=== PATIENT | female | born 1955 | race Caucasian/White ===

== ENCOUNTER → 2017-02-18 | Outpatient (CLI) | payer OTHER | END | disposition home or self-care (01) | LOC: GMA 15:36 | PROVIDERS: ATTEND Nurse Practitioner Family | DX: N39.0 Urinary tract infection, site not specified (principal) ==

== ENCOUNTER → 2017-04-13 | Outpatient (CLI) | payer OTHER | END | disposition home or self-care (01) | LOC: GMAM 12:09 | PROVIDERS: ATTEND Family Medicine | DX: E03.9 Hypothyroidism, unspecified (principal); E53.8 Deficiency of other specified B group vitamins ==

== ENCOUNTER → 2017-06-13 | Outpatient (CLI) | payer OTHER | END | disposition home or self-care (01) | LOC: GMA 11:09 | PROVIDERS: ATTEND Nurse Practitioner Acute Care | DX: E03.9 Hypothyroidism, unspecified (principal) ==

== ENCOUNTER → 2017-07-31 | Outpatient (CLI) | payer OTHER | END | disposition home or self-care (01) | LOC: GMA 15:02 | PROVIDERS: ATTEND Nurse Practitioner Acute Care | DX: N39.0 Urinary tract infection, site not specified (principal) ==

== ENCOUNTER → 2017-09-05 | Outpatient (CLI) | payer OTHER | END | disposition home or self-care (01) | LOC: GMA 12:18 | PROVIDERS: ATTEND Nurse Practitioner Acute Care | DX: E03.9 Hypothyroidism, unspecified (principal) ==

== ENCOUNTER → 2017-10-04 | Outpatient (CLI) | payer OTHER ==
--- NOTE | 2017-10-04 14:49 | MAM ---
EXAM DESCRIPTION: 3D Screening BILATERAL : Digital Mammography. CLINICAL HISTORY: 62 years Female SCREENING . No complaints. No family history breast cancer. Hysterectomy 1981. Has taken HRT more than 5 years ago. Bilateral breast augmentation 1984. COMPARISON: 2-D digital screening bilateral study 04/24/2014. No prior reports available. TECHNIQUE: Bilateral CC and MLO projection full-field images, with Adalgisa Implant Displacement 3-D tomosynthesis digital mammographic technique. Also bilateral synthesized CC/ MLO full-field images , with Adalgisa Implant Displacement, CAD not utilized. 2-D digital full-field images, MLO and CC projections bilaterally, non-displaced, with CAD. FINDINGS: The breast parenchymal density pattern is: Heterogeneously dense breast tissue, which may obscure small masses. No skin thickening or nipple retraction bilateral vascular calcifications. Bilateral silicon retroglandular implants with irregular capsules but no definite leakage. Bilateral solitary microcalcifications. No focal, stellate mass or density, focal asymmetry , and no suspicious microcalcifications bilaterally. Stable mammograms compared to prior study, taking into account differences in mammographic technique IMPRESSION: BI-RADS CATEGORY: 2 - BENIGN FINDINGS. FOLLOW UP: Routine digital bilateral screening, one year interval from September 2017. Written communication explaining the IMPRESSION and follow-up, will be mailed to the patient and referring health care provider. According to the [employer], yearly mammograms are recommended starting at age 40 and continuing as long as a woman is in good health. Any breast change noted on a breast self-exam should be reported promptly to the patient's healthcare provider. Breast MRI is recommended for women with an approximately 20-25% or greater lifetime risk of breast cancer, including women with a strong family history of breast or ovarian cancer and women who have been treated for Hodgkin's disease. A negative mammographic report should not delay tissue diagnosis in patients with significant clinical history or physical findings. Extremely dense breast tissue limits the sensitivity of digital mammography. Electronically signed by: Lee Coburn MD 10/04/2017 2:48 PM [employer] CLIENT MANAGER
== END | disposition home or self-care (01) ==
LOC: MAMMO 10:58
PROVIDERS: ATTEND Family Medicine
DX: Z12.31 Encounter for screening mammogram for malignant neoplasm of breast (principal)
CPT/HCPCS: 77063; G0202

== ENCOUNTER → 2017-10-19 | Outpatient (CLI) | payer OTHER | END | disposition home or self-care (01) | LOC: GMA 11:03 | PROVIDERS: ATTEND Nurse Practitioner Acute Care | DX: E53.8 Deficiency of other specified B group vitamins (principal); E03.9 Hypothyroidism, unspecified; E55.9 Vitamin D deficiency, unspecified ==

== ENCOUNTER → 2017-11-21 | Outpatient (CLI) | payer OTHER | LOC: GMALS 11:40 | PROVIDERS: ATTEND Nurse Practitioner Acute Care | DX: E03.9 Hypothyroidism, unspecified (principal) ==

== ENCOUNTER → 2018-01-02 | Outpatient (CLI) | payer OTHER | LOC: GMA 12:13 | PROVIDERS: ATTEND Nurse Practitioner Acute Care | DX: E03.9 Hypothyroidism, unspecified (principal) ==

== ENCOUNTER 2018-01-13 20:50 | Emergency (ER) | payer OTHER ==
[2018-01-13] MEDS ORDERED: CHLORHEXIDINE GLUCONATE 4 % 15 ML UD TOP ONE (20:57)
[2018-01-13 21:12] VITALS: BP 135/93; O2SAT 94
[2018-01-13] MEDS ORDERED: TETANUS-DIPHTHERIA TOXOIDS (TD 1 EA SYG IM ONE (21:12)
[2018-01-13] MEDS ORDERED: SULFA/TRIMETH 800/160 (DS) TAB 1 EA TAB PO ONE (21:12)
--- NOTE | 2018-01-13 21:16 | ED.PDOC ---
History of Present Illness - General Chief Complaint: Laceration Stated Complaint: Fell off ladder hitting back head Time Seen by Provider: 01/13/18 21:06 Source: patient Exam Limitations: no limitations - History of Present Illness Initial Comments: The patient is a 62-year-old female presenting to the emergency room secondary to having tripped and fallen backwards off of the latter up about a foot and a half in the air. The patient did not have any loss of consciousness. She had the posterior right occipital area and sustained a 1-1/ 4 inch laceration that extends down to the cranium. No evidence of any bony crepitus. No evidence of CSF leakage. No evidence of any midface fracture or neck pain. She is not taking any blood thinners. No loss of consciousness. Timing/Duration: momentarily Severity: moderate Improving Factors: nothing Worsening Factors: nothing Associated Symptoms: denies symptoms Home Medications: Ambulatory Orders Sulfa/Trimeth 800/160 (Ds) Tab [Bactrim DS Tab] 1 ea PO BID #7 tab 01/13/18 Review of Systems - Review of Systems Constitutional: States: no symptoms reported EENTM: States: no symptoms reported Respiratory: States: no symptoms reported Cardiology: States: no symptoms reported Gastrointestinal/Abdominal: States: no symptoms reported Genitourinary: States: no symptoms reported Musculoskeletal: States: no symptoms reported Skin: States: see HPI Neurological: States: headache - mild Endocrine: States: no symptoms reported All other Systems: No Change from Baseline Past Medical History (General) - Patient Medical History Hx Seizures: No Hx Stroke: No Hx Dementia: No Hx Asthma: No Hx of COPD: No Hx Cardiac Disorders: No Hx Congestive Heart Failure: No Hx Pacemaker: No Hx Hypertension: No Hx Thyroid Disease: Yes Hx Diabetes: No Hx Gastroesophageal Reflux: No Hx Renal Disease: No Hx Cancer: No Hx of HIV: No Hx Hepatitis C: No Hx MRSA: No Surgical History: noncontributory - Vaccination History Hx Tetanus, Diphtheria Vaccination: No Hx Influenza Vaccination: No Hx Pneumococcal Vaccination: Yes Immunizations Up to Date: No Immunizations Comment: Needs Tetanus - Social History Hx Tobacco Use: Yes - Quit over 20 yrs ago Hx Chewing Tobacco Use: No Hx Alcohol Use: Yes Hx Substance Use: No Hx Substance Use Treatment: No Hx Depression: No Feels Threatened In Home Enviroment: No Feels Threatened In a Relationship: No Hx Physical Abuse: No Hx Emotional Abuse: No Hx Suspected Abuse: No - Activities of Daily Living Hospice Agency (if applicable):: None - Female History Patient is a Female of Child Bearing Age (10 -59 yrs old): No Patient : No Physical Exam - Physical Exam General Appearance: Alert, Comfortable, No apparent distress Eye Exam: bilateral normal Ears, Nose, Throat: hearing grossly normal, normal ENT inspection Neck: full range of motion, supple Respiratory: no respiratory distress, no accessory muscle use Cardiovascular/Chest: normal peripheral pulses, no edema Peripheral Pulses: radial,right: 2+, radial,left: 2+ Rectal Exam: deferred Back Exam: normal inspection Extremity: non-tender, normal inspection, normal capillary refill Neurologic: roller hand II-XII nml as tested, alert, normal mood/affect, oriented x 3 Skin Exam: normal color Comments: Vital Signs - 24 hr 01/13/18 20:55 Temperature 97.5 F L Pulse Rate [ 104 H Right Brachial] Respiratory 20 Rate Blood Pressure 135/93 [Right Arm] O2 Sat by Pulse 94 L Oximetry Progress - Progress Progress: 01/13/18 21:14 the patient is a 62-year-old female that fell backwards off of the ladder a little more than a foot in the air. She sustained a posterior occipital laceration to the scalp. This has been cleaned and 3 vicki have been placed for reapproximation of tissue and hemostasis. The patient was given a dose of Bactrim and a tetanus shot. She'll be placed on Bactrim twice daily for the next 3 days. Vicki need to come out in 7-10 days. Monitor for any evidence of infection. She is to be brought back to the emergency room for any worsening of her mental status. ER warnings were given. Departure - Departure Clinical Impression: Accidental laceration Disposition: Discharge to Home or Self Care Condition: Fair Departure Forms: ED Discharge - Pt. Copy, Patient Portal Self Enrollment Instructions: DI for Laceration Repair, DI for Laceration Repair -- [place] Diet: regular diet Activity: increase activity as tolerated Referrals: Darrell Giles MD [Primary Care Provider] - 1-2 Weeks Prescriptions: Sulfa/Trimeth 800/160 (Ds) Tab [Bactrim DS Tab] 1 ea PO BID #7 tab Home Medications: Ambulatory Orders Sulfa/Trimeth 800/160 (Ds) Tab [Bactrim DS Tab] 1 ea PO BID #7 tab 01/13/18 Additional Instructions: the patient is a 62-year-old female that fell backwards off of the ladder a little more than a foot in the air. She sustained a posterior occipital laceration to the scalp. This has been cleaned and 3 vicki have been placed for reapproximation of tissue and hemostasis. The patient was given a dose of Bactrim and a tetanus shot. She'll be placed on Bactrim twice daily for the next 3 days. [place] need to come out in 7-10 days. Monitor for any evidence of infection. She is to be brought back to the emergency room for any worsening of her mental status. ER warnings were given.
[2018-01-13 21:18] VITALS: TEMP 98.3
[2018-01-13] MEDS ORDERED: TETANUS,DIPHTHERIA,PERTUSSIS 1 EA SYG IM ONE (21:20)
== END 2018-01-13 21:39 | disposition home or self-care (01) ==
LOC: ER 20:50
DX: S01.01XA Laceration without foreign body of scalp, initial encounter (principal); E07.9 Disorder of thyroid, unspecified; Z23 Encounter for immunization; Z87.891 Personal history of nicotine dependence; W11.XXXA Fall on and from ladder, initial encounter; Y92.9 Unspecified place or not applicable

== ENCOUNTER → 2018-02-20 | Outpatient (CLI) | payer OTHER | LOC: GMATM 16:34 | PROVIDERS: ATTEND Nurse Practitioner Family | DX: N39.0 Urinary tract infection, site not specified (principal) ==

== ENCOUNTER → 2019-01-22 | Outpatient (CLI) | payer OTHER | LOC: GMALS 11:05 | PROVIDERS: ATTEND Nurse Practitioner Acute Care | DX: E03.9 Hypothyroidism, unspecified (principal) ==

== ENCOUNTER → 2019-04-22 | Outpatient (CLI) | payer OTHER | LOC: GMA 10:35 | PROVIDERS: ATTEND Nurse Practitioner Acute Care | DX: E03.9 Hypothyroidism, unspecified (principal) ==

== ENCOUNTER → 2020-07-06 | Outpatient (CLI) | payer MEDICARE, OTHER | LOC: GMALS 14:18 | PROVIDERS: ATTEND Nurse Practitioner Acute Care | DX: R23.3 Spontaneous ecchymoses (principal) ==

== ENCOUNTER → 2020-07-08 | Outpatient (CLI) | payer MEDICARE, OTHER ==
--- NOTE | 2020-07-14 15:50 | MAM ---
EXAM DESCRIPTION: 3D Screening BILATERAL : Digital Mammography. CLINICAL HISTORY: 65 years Female SCREENING . No complaints and no family history breast cancer. Menarche age 13. Childbirth age 17. Menopause age 25. HRT less than 5 years ago. Bilateral breast augmentation.. Lifetime risk of developing breast cancer (Tyrer-Cuzick model)(%): 4.6. COMPARISON: Bilateral screening digital breast tomosynthesis with Adalgisa implant displacement September 2017. TECHNIQUE: Bilateral CC and MLO projection full-field images, with Adalgisa Implant Displacement digital tomosynthesis mammographic technique. Bilateral 2-D digital full-field images, MLO and CC projections, non-displaced. Bilateral digital 2-D full-field MLO images. Implant displaced. CAD available for 2-D images. FINDINGS: The breast parenchymal density pattern is: Scattered areas of fibroglandular density. No skin thickening or nipple retraction. Bilateral retroglandular implants demonstrate partially calcified capsules, and reduced in size. Bilateral small leaks are suspected with outpouching of implant material. Vascular calcifications. No new focal, stellate mass or density, focal asymmetry , and no suspicious microcalcifications bilaterally. Stable mammograms compared to prior study. IMPRESSION: Benign exam. BIRAD CATEGORY: 2 BENIGN FINDINGS. RECOMMENDATIONS: FOLLOW UP: Routine digital bilateral mammographic screening, one year interval from July 2020. Written communication explaining the IMPRESSION and follow-up, will be mailed to the patient and referring health care provider. According to the [employer], yearly mammograms are recommended starting at age 40 and continuing as long as a woman is in good health. Any breast change noted on a breast self-exam should be reported promptly to the patient's healthcare provider. Breast MRI is recommended for women with an approximately 20-25% or greater lifetime risk of breast cancer, including women with a strong family history of breast or ovarian cancer and women who have been treated for Hodgkin's disease. A negative mammographic report should not delay tissue diagnosis in patients with significant clinical history or physical findings. Extremely dense breast tissue limits the sensitivity of digital mammography. Electronically signed by: Lee Coburn MD 07/14/2020 3:48 PM CDT
== END ==
LOC: MAMMO 13:34
PROVIDERS: ATTEND Nurse Practitioner Acute Care
DX: Z12.31 Encounter for screening mammogram for malignant neoplasm of breast (principal)

== ENCOUNTER → 2020-08-13 | Outpatient (CLI) | payer MEDICARE, OTHER | LOC: GMAM 10:39 | PROVIDERS: ATTEND Family Medicine | DX: E03.9 Hypothyroidism, unspecified (principal) ==

== ENCOUNTER → 2020-09-28 | Outpatient (CLI) | payer MEDICARE, OTHER | LOC: GMALS 16:40 | PROVIDERS: ATTEND Nurse Practitioner Acute Care | DX: E03.9 Hypothyroidism, unspecified (principal) ==

== ENCOUNTER → 2020-10-29 | Outpatient (CLI) | payer MEDICARE, OTHER | LOC: GMALS 16:39 | PROVIDERS: ATTEND Nurse Practitioner Acute Care | DX: E53.8 Deficiency of other specified B group vitamins (principal); E55.9 Vitamin D deficiency, unspecified; E03.9 Hypothyroidism, unspecified ==

== ENCOUNTER → 2020-11-05 | Outpatient (CLI) | payer MEDICARE, OTHER ==
--- NOTE | 2020-11-06 10:38 | RAD ---
EXAMS DESCRIPTION: Knee,Right Complete (accession [id number]), Pelvis (accession [id number]) CLINICAL HISTORY: 65 years, Female, KNEE PAIN COMPARISON: None TECHNIQUE: Three x-ray views of the right knee FINDINGS: X-ray right knee No acute fracture or dislocation. Bones appear normally mineralized with normal trabecular pattern. Narrowed appearance of medial and lateral compartments on frontal view. Lateral view shows normal position of the patella. No patellar spurring or enthesopathy. No suprapatellar knee joint effusion. Normal contour of quadriceps and patellar tendons. Oblique view shows intact tibial plateau. No proximal fibular fracture. Arnold Line patellar view shows no subluxation or significant spurring. X-RAY PELVIS Deformity at the upper left iliac crest may be old trauma. Mild degenerative changes in the lower lumbar spine. Degenerative narrowing of the SI joints and pubic symphysis. Bilateral hip joint space narrowing. No fracture or bony destructive lesion. Few phleboliths in the pelvis. IMPRESSION: Negative for fracture or dislocation. Electronically signed by: Jt Moya MD 11/06/2020 10:36 AM [facility]
--- NOTE | 2020-11-06 10:38 | RAD ---
EXAMS DESCRIPTION: Knee,Right Complete (accession [id number]), Pelvis (accession [id number]) CLINICAL HISTORY: 65 years, Female, KNEE PAIN COMPARISON: None TECHNIQUE: Three x-ray views of the right knee FINDINGS: X-ray right knee No acute fracture or dislocation. Bones appear normally mineralized with normal trabecular pattern. Narrowed appearance of medial and lateral compartments on frontal view. Lateral view shows normal position of the patella. No patellar spurring or enthesopathy. No suprapatellar knee joint effusion. Normal contour of quadriceps and patellar tendons. Oblique view shows intact tibial plateau. No proximal fibular fracture. Cavalier patellar view shows no subluxation or significant spurring. X-RAY PELVIS Deformity at the upper left iliac crest may be old trauma. Mild degenerative changes in the lower lumbar spine. Degenerative narrowing of the SI joints and pubic symphysis. Bilateral hip joint space narrowing. No fracture or bony destructive lesion. Few phleboliths in the pelvis. IMPRESSION: Negative for fracture or dislocation. Electronically signed by: Jt Moya MD 11/06/2020 10:36 AM [facility]
== END ==
LOC: RAD 09:24
PROVIDERS: ATTEND Orthopaedic Surgery
DX: M25.551 Pain in right hip (principal); M25.561 Pain in right knee